=== PATIENT | female | born 1990 | race Two or more races ===

== ENCOUNTER 2017-11-17 20:01 | Emergency (ER) | payer OTHER ==
[2017-11-17 20:18] VITALS: TEMP 98.1
--- NOTE | 2017-11-17 20:18 | PDOC ---
Rapid Medical Evaluation Time Seen by Provider: 11/17/17 20:15 Medical Evaluation: 11/17/17 20:15 I have performed a brief in-person evaluation of the patient. The patient presents with chief complaint of: spotting x 5 days. G1, 5 weeks with light spotting. Denies dizziness, abdominal cramping, dysuria or nausea Pertinent physical exam findings are: NAD Lungs clear bilaterally abdomen + bowel sounds I have ordered the following: urine , urinalysis, cbc, bhcg The patient will proceed to the ED for further evaluation.
[2017-11-17 20:50] LABS: BASO % 0.6 % (0-2.0); EOS % 0.8 % (0-4.5); HEMATOCRIT 38.7 % (32.4-45.2); HEMOGLOBIN 13.6 GM/dL (10.7-15.3); LYMPH % 26.1 % (8-40); MCH 31.4 pg (25.7-33.7); MCHC 35.1 g/dl (32.0-36.0); MEAN CELL VOLUME 89.4 fl (80-96); MEAN PLT VOLUME 7.5 fl (7.5-11.1); MONO % 7.6 % (3.8-10.2); NEUT % 64.9 % (42.8-82.8); PLATELET COUNT 280 K/MM3 (134-434); RBC 4.33 M/mm3 (3.60-5.2); RDW 12.8 % (11.6-15.6); WHITE BLOOD COUNT 9.3 K/mm3 (4.0-10.0)
[2017-11-17 22:07] LABS: HCG,QUALITATIVE URINE POSITIVE
[2017-11-17 22:10] LABS: URINE APPEARANCE SLCLOUDY; URINE BILIRUBIN NEGATIVE (NEGATIVE); URINE BLOOD 2+ (NEGATIVE); URINE COLOR LTYELLOW; URINE GLUCOSE (UA) NEGATIVE (NEGATIVE); URINE KETONE NEGATIVE (NEGATIVE); URINE NITRITE NEGATIVE (NEGATIVE); URINE PROTEIN NEGATIVE (NEGATIVE); URINE UROBILINOGEN NEGATIVE mg/dL (0.2-1.0)
[2017-11-17 22:12] LABS: URINE LEUK ESTERASE 3+ (NEGATIVE)
[2017-11-17 22:13] LABS: EPI CELLS MODERATE /HPF (FEW); URINE BACTERIA RARE /hpf (NONE SEEN); URINE HYALINE CAST 4 /lpf; URINE MUCUS RARE
--- NOTE | 2017-11-17 22:14 | PDOC ---
History of Present Illness - General History Source: Patient Exam Limitations: No Limitations - History of Present Illness Initial Comments: 11/17/17 23:16 The patient is a 27 year old female , with a significant past medical history of HPV who presents to the emergency department with vaginal spotting for the past 3 days. Patient reports positive urine test 6 days ago. Patient reports brown spotting with mild lower abdominal cramping. Patient presents to the ED for further evaluation. Note, LMP was October 10. Upon evaluation, patients vital signs significant for 127 HR. Patient denied vaginal discharge, itching, dysuria, frequency, urgency or hematuria. Patient denies chest pain, headache or dizziness. Patient denies fever, chills, nausea, vomit, diarrhea or constipation. Patient denies sick contacts or recent travel. <Gloria Husain - Last Filed: 11/17/17 23:16> <Candida Yang - Last Filed: 11/18/17 00:06> - General Chief Complaint: Vaginal Bleeding Stated Complaint: 5 WEEKS ABD PAIN Time Seen by Provider: 11/17/17 20:15 Past History <Gloria Husain - Last Filed: 11/17/17 23:16> - Past Medical History COPD: No - Suicide/Smoking/Psychosocial Hx Smoking History: Never smoked <Candida Yang - Last Filed: 11/18/17 00:06> - Past Medical History Allergies/Adverse Reactions: Allergies Allergy/AdvReac Type Severity Reaction Status Date / Time No Known Allergies Allergy Verified 11/17/17 20:16 Home Medications: Ambulatory Orders Cephalexin Monohydrate [Keflex -] 500 mg PO BID #14 capsule 11/17/17 Review of Systems - Review of Systems Able to Perform ROS?: Yes Comments:: 11/17/17 23:16 CONSTITUTIONAL: Absent: fever, chills, diaphoresis, generalized weakness, malaise, loss of appetite HEENT: Absent: rhinorrhea, nasal congestion, throat pain, throat swelling, difficulty swallowing, mouth swelling, ear pain, eye pain, visual changes CARDIOVASCULAR: Absent: chest pain, syncope, palpitations, irregular heart rate, lightheadedness , peripheral edema RESPIRATORY: Absent: cough, shortness of breath, dyspnea with exertion, orthopnea, wheezing, stridor, hemoptysis GASTROINTESTINAL: Absent: abdominal pain, abdominal distension, nausea, vomiting, diarrhea, constipation, melena, hematochezia GENITOURINARY: Absent: dysuria, frequency, urgency, hesitancy, hematuria, flank pain, genital pain MUSCULOSKELETAL: Absent: myalgia, arthralgia, joint swelling SKIN: Absent: rash, itching, pallor HEMATOLOGIC/IMMUNOLOGIC: Absent: easy bleeding, easy bruising, lymphadenopathy, frequent infections ENDOCRINE: Absent: unexplained weight gain, unexplained weight loss, heat intolerance, cold intolerance NEUROLOGIC: Absent: headache, focal weakness or paresthesias, dizziness, unsteady gait, seizure, mental status changes, bladder or bowel incontinence PSYCHIATRIC: Absent: anxiety, depression, suicidal or homicidal ideation, hallucinations. : +brown vaginal spotting. <Gloria Husain - Last Filed: 11/17/17 23:16> *Physical Exam - Vital Signs Last Vital Signs Temp Pulse Resp BP Pulse Ox 98.1 F 127 H 18 116/56 100 11/17/17 20:16 11/17/17 20:16 11/17/17 20:16 11/17/17 20:16 11/17/17 20:16 - Physical Exam Comments: 11/17/17 23:16 GENERAL: Well developed, well nourished. Awake and alert. No acute distress. HEENT: Normocephalic, atraumatic. PERRLA, EOMI. No conjunctival pallor. Sclera are non- icteric. Moist mucous membranes. Oropharynx is clear. NECK: Supple. Full ROM. No JVD. Carotid pulses 2+ and symmetric, without bruits. No thyromegaly. No lymphadenopathy. CARDIOVASCULAR: Regular rate and rhythm. No murmurs, rubs, or gallops. Distal pulses are 2+ and symmetric. PULMONARY: No evidence of respiratory distress. Lungs clear to auscultation bilaterally. No wheezing, rales or rhonchi. ABDOMINAL: Soft. Non-tender. Non-distended. No rebound or guarding. No organomegaly. Normoactive bowel sounds. MUSCULOSKELETAL Normal range of motion at all joints. No bony deformities or tenderness. No CVA tenderness. EXTREMITIES: No cyanosis. No clubbing. No edema. No calf tenderness. SKIN: Warm and dry. Normal capillary refill. No rashes. No jaundice. NEUROLOGICAL: Alert, awake, appropriate. Cranial nerves 2-12 intact. No deficits to light touch and temperature in face, upper extremities and lower extremities. No motor deficits in the in face, upper extremities and lower extremities. Normoreflexic in the upper and lower extremities. Normal speech. Toes are down-going bilaterally. Gait is normal without ataxia. PSYCHIATRIC: Cooperative. Good eye contact. Appropriate mood and affect. <Gloria Husain - Last Filed: 11/17/17 23:16> - Vital Signs Last Vital Signs Temp Pulse Resp BP Pulse Ox 98.1 F 127 H 18 116/56 100 11/17/17 20:16 11/17/17 20:16 11/17/17 20:16 11/17/17 20:16 11/17/17 20:16 <Candida Yang - Last Filed: 11/18/17 00:06> ED Treatment Course - LABORATORY CBC & Chemistry Diagram: 11/17/17 20:32 - ADDITIONAL ORDERS Additional order review: Laboratory Results 11/17/17 11/17/17 21:50 20:30 Beta HCG, Quant 8117.1 Urine Color Ltyellow Urine Appearance Slcloudy Urine pH 7.0 Ur Specific [place] 1.017 Urine Protein Negative Urine Glucose (UA) Negative Urine Ketones Negative Urine Blood 2+ H Urine Nitrite Negative Urine Bilirubin Negative Urine Urobilinogen Negative Ur Leukocyte Esterase 3+ H Urine WBC (Auto) 11 Urine RBC (Auto) 2 Ur Epithelial Cells Moderate Urine Bacteria Rare Hyaline Casts 4 Urine Mucus Rare Urine HCG, Qual Positive 11/17/17 20:32 RBC 4.33 MCV 89.4 MCHC 35.1 RDW 12.8 MPV 7.5 Neutrophils % 64.9 Lymphocytes % 26.1 Monocytes % 7.6 Eosinophils % 0.8 Basophils % 0.6 <Gloria Husain - Last Filed: 11/17/17 23:16> - LABORATORY CBC & Chemistry Diagram: 11/17/17 20:32 - ADDITIONAL ORDERS Additional order review: Laboratory Results 11/17/17 11/17/17 21:50 20:30 Beta HCG, Quant 8117.1 Urine Color Ltyellow Urine Appearance Slcloudy Urine pH 7.0 Ur Specific [place] 1.017 Urine Protein Negative Urine Glucose (UA) Negative Urine Ketones Negative Urine Blood 2+ H Urine Nitrite Negative Urine Bilirubin Negative Urine Urobilinogen Negative Ur Leukocyte Esterase 3+ H Urine HCG, Qual Positive 11/17/17 20:32 RBC 4.33 MCV 89.4 MCHC 35.1 RDW 12.8 MPV 7.5 Neutrophils % 64.9 Lymphocytes % 26.1 Monocytes % 7.6 Eosinophils % 0.8 Basophils % 0.6 - RADIOLOGY Radiology Studies Ordered: Category Date Time Status TRANSVAGINAL US PREG [US] Stat Ultrasound 11/17/17 21:57 Ordered <Candida Yang - Last Filed: 11/18/17 00:06> *DC/Admit/Observation/Transfer - Attestations Scribe Attestion: 11/17/17 23:16 Documentation prepared by Gloria Husain, acting as biomedical field service engineer for Candida Yang MD <Gloria Husain - Last Filed: 11/17/17 23:16> <Candida Yang - Last Filed: 11/18/17 00:06> Diagnosis at time of Disposition: Threatened - Discharge Dispostion Disposition: HOME Condition at time of disposition: Stable - Prescriptions Prescriptions: Cephalexin Monohydrate [Keflex -] 500 mg PO BID #14 capsule - Referrals Referrals: ON STAFF,NOT [Primary Care Provider] - - Patient Instructions Printed Discharge Instructions: DI for Threatened Additional Instructions: please return for repeat BHCG and ultrasound in 48 hours - Post Discharge Activity
[2017-11-17] MEDS ORDERED: CEPHALEXIN MONOHYDRATE 500 MG CAPSULE (UD) PO STA (23:44)
[2017-11-17] MEDS ORDERED: CEPHALEXIN MONOHYDRATE 250 MG CAPSULE (FP) ONE (23:51)
[2017-11-18 00:35] VITALS: BP 116/60; PULSE 89
== END 2017-11-18 00:36 | disposition home or self-care (01) ==
LOC: JER 20:01
DX: O20.0 Threatened abortion (principal); Z3A.01 Less than 8 weeks gestation of pregnancy
CPT/HCPCS: 36415; 76817-TC; 81003; 81015; 84702; 84703; 85025; 86850; 86900; 86901; 99282-25

== ENCOUNTER 2017-11-19 21:59 | Emergency (ER) | payer OTHER ==
[2017-11-19 22:05] VITALS: BP 117/61; PULSE 90; TEMP 98.6; BMI 21.6
--- NOTE | 2017-11-19 22:59 | PDOC ---
History of Present Illness - General Chief Complaint: Revisit, Lab Variance Stated Complaint: REPEAT BHCG Time Seen by Provider: 11/19/17 22:41 History Source: Patient - History of Present Illness Initial Comments: 11/19/17 23:28 27 year old female with vaginal spotting was seen in the ER 2 days ago , was told to come back for repeat BHCG and TVUS. patient reports that she was given antibiotics for UTI. unable to tolerate large pill. Past History - Past Medical History Allergies/Adverse Reactions: Allergies Allergy/AdvReac Type Severity Reaction Status Date / Time No Known Allergies Allergy Verified 11/19/17 22:05 Home Medications: Ambulatory Orders Cefuroxime Axetil [Ceftin -] 500 mg PO Q12H #20 tablet 11/19/17 COPD: No - Suicide/Smoking/Psychosocial Hx Smoking History: Never smoked Have you smoked in the past 12 months: No Information on smoking cessation initiated: No Hx Alcohol Use: No Drug/Substance Use Hx: No Substance Use Type: None Review of Systems - Review of Systems Able to Perform ROS?: Yes Is the patient limited [place] proficient: No Constitutional: No: Symptoms Reported, See HPI, Chills, Diaphoresis, Fever, Loss of Appetite, Malaise, Night Sweats, Weakness, Weight Stable, Unintentional Wgt. Loss, Unexplained wgt Loss, Other Respiratory: No: Symptoms reported, See HPI, Cough, Orthopnea, Shortness of Breath, SOB with Exertion, SOB at Rest, Stridor, Wheezing, Productive cough, Hemoptysis, Other Cardiac (ROS): No: Symptoms Reported, See HPI, Chest Pain, Edema, Irregular Heart Rate, Lightheadedness, Palpitations, Syncope, Chest Tightness, Other ABD/GI: No: Symptoms Reported, See HPI, Abdominal Distended, Abd. Pain w/ defecation, Blood Streaked Bowels, Constipated, Diarrhea, Difficulty Swallowing , Nausea, Poor Appetite, Poor Fluid Intake, Rectal Bleeding, Vomiting, Indigestion, Abdominal cramping, Tarry Stools, Other : No: Symptoms Reported, See HPI, Burning, Dysuria, Discharge, Frequency, Flank Pain, Hematuria, Incontinence, Pain, Urgency, Testicular Mass, Testicular Swelling, Lesions, Testicular Pain, Other *Physical Exam - Vital Signs Last Vital Signs Temp Pulse Resp BP Pulse Ox 98.6 F 90 16 117/61 100 11/19/17 22:02 11/19/17 22:02 11/19/17 22:02 11/19/17 22:02 11/19/17 22:02 - Physical Exam General Appearance: Yes: Appropriately Dressed Respiratory/Chest: positive: Lungs Clear, Normal Breath Sounds Cardiovascular: positive: Regular Rhythm, Regular Rate Gastrointestinal/Abdominal: positive: Normal Bowel Sounds. negative: Tender Musculoskeletal: positive: Normal Inspection Extremity: positive: Normal Capillary Refill, Normal Inspection, Delayed Capillary Refill Integumentary: positive: Normal Color, Dry, Warm Neurologic: positive: Fully Oriented, Alert Medical Decision Making - Medical Decision Making 11/19/17 23:44 R/o Ectopic *DC/Admit/Observation/Transfer Diagnosis at time of Disposition: Threatened - Prescriptions Prescriptions: Cefuroxime Axetil [Ceftin -] 500 mg PO Q12H #20 tablet - Referrals Referrals: ON STAFF,NOT [Primary Care Provider] - - Patient Instructions Printed Discharge Instructions: Managing Symptoms of Additional Instructions: drink plenty of fluids take cefuroxime as prescribed. follow up with your doctor as soon as possible. return to the ER if you have severe vaginal bleeding where you are soaking 2 pads per hour/ severe abdominal pain, fever or worsening symptoms.. take vitamins daily. - Post Discharge Activity
== END 2017-11-20 00:59 | disposition home or self-care (01) ==
LOC: JER 21:59
DX: O20.0 Threatened abortion (principal)
CPT/HCPCS: 36415; 76817-TC; 84702; 99281-25

== ENCOUNTER 2017-12-14 03:20 | Emergency (ER) | payer SELFPAY ==
[2017-12-14 03:44] VITALS: BMI 21.6
--- NOTE | 2017-12-14 07:39 | PDOC ---
History of Present Illness - General History Source: Patient - History of Present Illness Timing/Duration: reports: constant, other (this am) Abdominal Pain Onset Location: reports: suprapubic Pain Radiation: reports: back <Uche Ellis - Last Filed: 12/14/17 12:01> <Arleen Kirkland - Last Filed: 12/14/17 14:07> - General Chief Complaint: Vaginal Bleeding Stated Complaint: 9 WEEKS /PAIN Time Seen by Provider: 12/14/17 07:22 Past History - Past Medical History COPD: No - Suicide/Smoking/Psychosocial Hx Smoking History: Never smoked Have you smoked in the past 12 months: No Information on smoking cessation initiated: No Hx Alcohol Use: No Drug/Substance Use Hx: No Substance Use Type: None <Uche Ellis - Last Filed: 12/14/17 12:01> <Arleen Kirkland - Last Filed: 12/14/17 14:07> - Past Medical History Allergies/Adverse Reactions: Allergies Allergy/AdvReac Type Severity Reaction Status Date / Time No Known Allergies Allergy Verified 12/14/17 03:32 Home Medications: Ambulatory Orders NK [No Known Home Medication] 12/14/17 Review of Systems - Review of Systems Constitutional: No: Chills, Fever ABD/GI: Yes: Nausea, Abdominal cramping. No: Vomiting : No: Dysuria, Flank Pain <Uche Ellis - Last Filed: 12/14/17 12:01> *Physical Exam - Vital Signs Last Vital Signs Temp Pulse Resp BP Pulse Ox 98.4 F 86 18 115/66 100 12/14/17 03:29 12/14/17 03:29 12/14/17 03:29 12/14/17 03:29 12/14/17 03:29 - Physical Exam General Appearance: Yes: Appropriately Dressed. No: Apparent Distress HEENT: positive: Normal Voice Neck: positive: Supple Respiratory/Chest: negative: Respiratory Distress Female Pelvic Exam: positive: normal external exam, cervical os closed, normal adnexa, vaginal bleeding (small amount of dark blood in vault, os closed, no cmt /adnexal ttp). negative: CMT Gastrointestinal/Abdominal: positive: Soft. negative: Tender Musculoskeletal: negative: CVA Tenderness Integumentary: positive: Dry, Warm Neurologic: positive: Fully Oriented, Alert, Normal Mood/Affect <Uche Ellis - Last Filed: 12/14/17 12:01> - Vital Signs Last Vital Signs Temp Pulse Resp BP Pulse Ox 98.2 F 89 18 132/73 100 12/14/17 12:21 12/14/17 12:21 12/14/17 12:21 12/14/17 12:21 12/14/17 12:21 <Arleen Kirkland - Last Filed: 12/14/17 14:07> ED Treatment Course - RADIOLOGY Radiology Studies Ordered: Category Date Time Status TRANSVAGINAL US PREG [US] Stat Ultrasound 12/14/17 07:30 Ordered <Uche Ellis - Last Filed: 12/14/17 12:01> - ADDITIONAL ORDERS Additional order review: Laboratory Results 12/14/17 12/14/17 12/14/17 08:20 08:20 07:59 Beta HCG, Quant 775125.0 Urine Color Ltyellow Urine Appearance Clear Urine pH 6.0 Ur Specific [place] 1.016 Urine Protein Negative Urine Glucose (UA) Negative Urine Ketones Negative Urine Blood 3+ H Urine Nitrite Negative Urine Bilirubin Negative Urine Urobilinogen Negative Ur Leukocyte Esterase Trace Urine WBC (Auto) 1 Urine RBC (Auto) 4 Ur Epithelial Cells Rare Urine Mucus Rare Blood Type B POSITIVE Antibody Screen Negative <Arleen Kirkland - Last Filed: 12/14/17 14:07> Medical Decision Making - Medical Decision Making 12/14/17 07:35 27 yo F, , ~9 weeks by dates, scheduled for first 02/04 at [facility] [place], here w/ vaginal bleeding this am, "feels like a period" per pt, w/ lower abd cramping radiating to back. No dysuria, f/c. +nausea throughout preg, no vomiting. Seen in ED over 3 weeks ago for vaginal bleeding with beta of of over 8 K on 11/17, which increased to beta of over 13 K, 11/19 with ultrasound consistent with IUP at 5 weeks 5 days w/ no cardiac activity. Patient states bleeding resolved until this a.m. Of note pt B+ on previous T&S See exam First trimester vaginal bleed +IUP @ ~5 weeks on US 3/14 w/ beta of >13K Threatened AB vs vaginal bleed in normal -Blood type B+ on prior T&S -beta -UA -US 12/14/17 09:59 12/14/17 12:01 Beta >102 K w/ +IUP @ 9 weeks w/ +cardiac activity. UA w/ no e/o infxn. Pt remains well-appearing and stable. Reports to me that vaginal bleeding has resolved since in ED. Will follow-up with her [employer]CHIT[employer] <Uche Ellis - Last Filed: 12/14/17 12:01> *DC/Admit/Observation/Transfer <Uche Ellis - Last Filed: 12/14/17 12:01> - Attestations Physician Attestion: I reviewed the case with the mid-level practitioner and agree with the mid- level practitioner's assessment, diagnosis and disposition. <Arleen Kirkland - Last Filed: 12/14/17 14:07> Diagnosis at time of Disposition: Threatened - Discharge Dispostion Disposition: HOME Condition at time of disposition: Good - Patient Instructions Printed Discharge Instructions: Threatened Additional Instructions: Your ultrasound shows a + intrauterine at about 9 weeks with heart activity. Your beta hCG was over 102,000. Your urine did not show any evidence of infection. Your blood type is B+. Return to ER for worsening of symptoms. Otherwise follow-up with your [employer] ARCHITECT
[2017-12-14 08:41] LABS: URINE APPEARANCE CLEAR; URINE BILIRUBIN NEGATIVE (<2.0 mg/dL); URINE BLOOD 3+ (NEGATIVE); URINE COLOR LTYELLOW; URINE GLUCOSE (UA) NEGATIVE (NEGATIVE); URINE KETONE NEGATIVE (NEGATIVE); URINE LEUK ESTERASE TRACE (NEGATIVE); URINE NITRITE NEGATIVE (NEGATIVE); URINE PROTEIN NEGATIVE (NEGATIVE); URINE UROBILINOGEN NEGATIVE mg/dL (0.2-1.0)
[2017-12-14 08:49] LABS: EPI CELLS RARE /HPF (FEW); URINE MUCUS RARE
[2017-12-14 12:22] VITALS: BP 132/73; PULSE 89; TEMP 98.2
== END 2017-12-14 12:21 | disposition home or self-care (01) ==
LOC: JER 03:20
DX: O26.891 Other specified pregnancy related conditions, first trimester (principal); O20.0 Threatened abortion; Z3A.09 9 weeks gestation of pregnancy
CPT/HCPCS: 36415; 76801-TC; 81003; 81015; 84702; 86850; 86900; 86901; 99283-25